=== PATIENT | female | born 1980 | race Two or more races ===

== ENCOUNTER → 2024-11-07 | Outpatient (CLI) | payer BC, SELFPAY ==
[2024-11-07 08:46] LABS: Basophils % (Auto) 1 % (0-2.5); Eosinophils # (Auto) 0.1 Thou/mm3 (0.0-0.5); Eosinophils % (Auto) 1 % (0-10); Hematocrit 37.4 % (36.0-46.0); Immature Granulocytes % (Auto) 0 % (0-0); Lymphocytes # (Auto) 2.1 Thou/mm3 (1.0-4.8); Lymphocytes % (Auto) 43 % (10-50); Mean Corpuscular HGB Conc 34.8 g/dl (31.0-37.0); Mean Corpuscular Volume 83 fL (80-100); Monocytes # (Auto) 0.3 Thou/mm3 (0.0-0.8); Monocytes % (Auto) 5 % (0-12); Neutrophils # (Auto) 2.6 Thou/mm3 (1.8-7.7); Neutrophils % (Auto) 51 % (37-80); Nucleated Red Blood Cell % 0 /100 WBC (0); Platelet Count 193 Thou/mm3 (140-440); Red Blood Count 4.49 Miln/mm3 (4.00-5.20)
[2024-11-07 08:51] LABS: Glucose Estimated Average 103 mg/dL (80-131); Hemoglobin A1C 5.2 % Hgb (4.8-6.0)
[2024-11-07 08:57] LABS: Collection Type, Urine Clean Catch
[2024-11-07 09:33] LABS: Bilirubin,Urine Negative (Negative); Blood,Urine Trace (Negative); Clarity,Urine Clear (Clear/Hazy); Color,Urine Lt-Yellow (Lt Yel-Yel); Culture Indicated,Urine Not Indicated; Glucose, Urine Negative (Negative); Ketones,Urine Negative (Negative); Leukocyte Esterase,Urine Negative (Negative); Nitrite,Urine Negative (Negative); Protein,Urine Negative (Neg - Trace); RBC,Urine 2 /hpf (0-3); Specific Gravity,Urine 1.012 (1.001-1.035); Squamous Epithelial Cell,Urine < 1 /hpf (0-5); Urobilinogen,Urine Negative mg/dL (0.0-1.0); WBC,Urine < 1 /hpf (0-5)
[2024-11-07 10:24] LABS: Vitamin D 25 Hydroxy Total 25.2 ng/mL (7.3-40.2)
[2024-11-07 12:33] LABS: Cardiac Risk Estimate 3.6 RATIO (3.7-5.6); Cholesterol 193 mg/dL (132-200); HDL Cholesterol 53 mg/dL (40-60); LDL Cholesterol,Calculated 110 mg/dL (0-130); Total Protein 7.1 gm/dL (5.7-8.2); Triglycerides 148 mg/dL (30-150)
[2024-11-07 12:43] LABS: Anion Gap 12 (7-16); Carbon Dioxide 23.7 mMol/L (20.0-31.0); Chloride 110 mMol/L (98-107); Potassium 4.6 mMol/L (3.4-5.1); Sodium 146 mMol/L (136-145)
[2024-11-07 12:44] LABS: Calcium 8.9 mg/dL (8.3-10.6)
[2024-11-07 12:50] LABS: Alanine Aminotransferase 25 U/L (10-49); Albumin, Serum 4.7 gm/dL (3.5-5.0); Alkaline Phosphatase 66 U/L (46-116); Aspartate Amino Transferase 19 U/L (0-34); BUN/Creatinine Ratio 19 Ratio (12-20); Blood Urea Nitrogen 15 mg/dL (9-23); Calcium (Corrected) 8.9 mg/dL (8.5-10.1); Creatinine (Component) 0.8 mg/dL (0.6-1.3); Globulin 2.4 gm/dL (2.3-3.5); Glucose 100 mg/dL (74-106); Osmolality,Calculated 291 (275-295); eGFR > 60 See Note
[2024-11-07 12:51] LABS: Bilirubin,Total 0.7 mg/dL (0.3-1.2)
[2024-11-07 12:53] LABS: Thyroid Stimulating Hormone 0.46 uIU/mL (0.55-4.78)
== END | disposition home or self-care (01) ==
PROVIDERS: PCP Family Medicine; Referring Provider Registered Nurse; Visit Provider Registered Nurse
DX: Z00.00 Encounter for general adult medical examination without abnormal findings (principal); E78.5 Hyperlipidemia, unspecified
CPT/HCPCS: 36415; 80053; 80061; 81001; 82306; 83036; 84443; 85025

== ENCOUNTER → 2024-11-27 | Outpatient (CLI) | payer BC, SELFPAY ==
[2024-11-27 15:01] LABS: Free T4 (Free Thyroxine) 1.62 ng/dL (0.89-1.76); Thyroid Stimulating Hormone 0.21 uIU/mL (0.55-4.78)
== END | disposition home or self-care (01) ==
LOC: COPL 13:37
PROVIDERS: PCP Family Medicine; Referring Provider Registered Nurse; Visit Provider Registered Nurse
DX: E05.40 Thyrotoxicosis factitia without thyrotoxic crisis or storm (principal)
CPT/HCPCS: 36415; 84439; 84443

== ENCOUNTER → 2024-12-12 | Outpatient (CLI) | payer BC, SELFPAY ==
--- NOTE | 2024-12-12 15:30 | XR_ITS ---
Examination: Thyroid sonography complete TECHNIQUE: Grayscale sonographic images thyroid lobes Date and time: January 11, 2025 1510 hours INDICATIONS: Abnormal thyroid function tests on laboratory examination November 27, 2024 FINDINGS: Right thyroid 4.5 cm Midpole nodules 9 x 9 mm, 4 x 4 millimeter Left thyroid 4.1 cm Upper pole nodule 6 x 4 mm Lower pole nodule 6 x 6 mm, 10 x 8 mm, 7 x 7 mm IMPRESSION: Thyroid nodules as above
== END | disposition home or self-care (01) ==
LOC: CDIM 14:55
PROVIDERS: PCP Family Medicine; Referring Provider Registered Nurse; Visit Provider Registered Nurse
DX: E04.2 Nontoxic multinodular goiter (principal)
CPT/HCPCS: 76536

== ENCOUNTER → 2025-01-26 | Outpatient (CLI) | payer BC, SELFPAY ==
--- NOTE | 2025-01-26 14:15 | XR_ITS ---
Examination: Screening digital mammography, bilateral Computer aided detection 3-D breast Tomosynthesis, bilateral Date and time of exam: January 26, 2025 1425 hours Compared to mammograms dating to December 15, 2022 Indication: Screening Technique: Nonmagnified MLO, CC views of the breasts to been obtained, reconstructed from 3-D Tomosynthesis images. R2 computer aided detection program utilized for evaluation of suspicious masses and/or abnormal calcifications. 3-D Tomosynthesis images obtained. Findings: The breasts are heterogeneously dense, which may obscure small masses Benign calcifications. No suspicious masses Impression: BI-RADS category II: Benign Findings. Recommend 1 year follow-up mammogram.
== END | disposition home or self-care (01) ==
LOC: CDIM 14:16
PROVIDERS: Referring Provider Family Medicine; Visit Provider Family Medicine
DX: Z12.31 Encounter for screening mammogram for malignant neoplasm of breast (principal); R92.323 Mammographic fibroglandular density, bilateral breasts; R92.1 Mammographic calcification found on diagnostic imaging of breast
CPT/HCPCS: 77063; 77067